=== PATIENT | male | born 1960 | race Two or more races ===

== ENCOUNTER 2022-10-03 09:00 | Day surgery (SDC) | payer OTHER ==
[2022-10-03] VITALS (10 sets, daily range): BP systolic 134–160; BP diastolic 77–94
[~2022-10-03] VITALS: Ht 172.7 cm; Wt 109.8 kg
[~2022-10-03 09:00] MED LIST: ASPI-498 PO; CHOL20007 PO; CILO100T PO; LEV50T PO; LOVA10TA54 PO; METO25TA5 PO; POM
[2022-10-03] MEDS ORDERED: DOCU100T15 PO (09:20)
[2022-10-03] MEDS ORDERED: LISI-275 PO (09:20)
[2022-10-03] MEDS ORDERED: LEVO50TA7 PO (09:20)
[2022-10-03] MEDS ORDERED: CLOP75TA70 PO (09:20)
[2022-10-03] MEDS ORDERED: LOVA20TA4 PO (09:20)
[2022-10-03] MEDS ORDERED: LIDOCAINE 2%HCL (LOCAL ANESTH.) INJ 10ml MDV ONE ×2 (11:07→11:26)
[2022-10-03] MEDS ORDERED: IODIXANOL 320MG/ML 100ML BTL IV ONE (11:08)
[2022-10-03] MEDS ORDERED: MIDAZOLAM HCL 2MG/2ML 2ml VIAL (1mg/ml) ONE (11:14)
[2022-10-03] MEDS ORDERED: fentaNYL CITRATE 100 MCG/2 ML VL ONE (11:14)
[2022-10-03] MEDS ORDERED: SODIUM CHL 0.9% 50 ML ONE (11:14)
[2022-10-03] MEDS ORDERED: ANGIOMAX 250 MG VIAL IV ONE (11:14)
== END 2022-10-03 15:05 | disposition home or self-care (01) ==
LOC: CATH 09:00
PROVIDERS: ATTEND Internal Medicine
DX: E11.51 Type 2 diabetes mellitus with diabetic peripheral angiopathy without gangrene (principal); I70.211 Atherosclerosis of native arteries of extremities with intermittent claudication, right leg; Z20.822 Contact with and (suspected) exposure to COVID-19; E11.40 Type 2 diabetes mellitus with diabetic neuropathy, unspecified; E78.5 Hyperlipidemia, unspecified; Z79.84 Long term (current) use of oral hypoglycemic drugs
CPT/HCPCS: 93005; C1769; C1894; C9764; J0583; J1644; J2001; J2250; J3010; J7030; Q9967; U0003

== ENCOUNTER 2023-04-10 06:48 | Day surgery (SDC) | payer OTHER ==
[2023-04-10] VITALS (10 sets, daily range): BP systolic 104–162; BP diastolic 70–94; PULSE 53–70; RESP 10–22; TEMP 97.6; O2SAT 95–97
[~2023-04-10] VITALS: Ht 172.7 cm; Wt 116.1 kg
[~2023-04-10 06:48] MED LIST changes: +ALBU108A5 IN; +CLOP75TA28 PO; +DOCU100T15 PO; -LEV50T PO; +LEVO50TA7 PO; +LISI-275 PO; -LOVA10TA54 PO; +LOVA20TA4 PO; -POM; +POTA8TAB38 PO
[2023-04-10] MEDS ORDERED: IODIXANOL 320MG/ML 100ML BTL IV ONE ×2 (07:23→08:54)
[2023-04-10] MEDS ORDERED: HEPARIN IN NS 1000Units/500mL 1,500 ML ONE (07:23)
[2023-04-10] MEDS ORDERED: LIDOCAINE 2%HCL (LOCAL ANESTH.) INJ 20ML MDV ONE (07:23)
[2023-04-10] MEDS ORDERED: ANGIOMAX 250 MG VIAL IV ONE (08:07)
[2023-04-10] MEDS ORDERED: SODIUM CHL 0.9% 0 ML ONE (08:07)
[2023-04-10] MEDS ORDERED: MIDAZOLAM HCL 2MG/2ML 2ml VIAL (1mg/ml) ONE (08:07)
[2023-04-10] MEDS ORDERED: fentaNYL CITRATE 100 MCG/2 ML VL ONE (08:07)
== END 2023-04-10 11:40 | disposition home or self-care (01) ==
LOC: CATH 06:48
PROVIDERS: ATTEND Internal Medicine
DX: I70.213 Atherosclerosis of native arteries of extremities with intermittent claudication, bilateral legs (principal); I10 Essential (primary) hypertension; Z79.899 Other long term (current) drug therapy; Z79.02 Long term (current) use of antithrombotics/antiplatelets; Z98.890 Other specified postprocedural states
CPT/HCPCS: 36247; 75716; 76937; C1760; C1769; C1887; C1894; J1644; J2250; J3010; J7030; Q9967; 99152; 99153